=== PATIENT | female | born 1975 | race Caucasian/White ===

== ENCOUNTER 2021-08-22 12:11 | Emergency (ER) | payer OTHER ==
[~2021-08-22] VITALS: Ht 167.6 cm; Wt 94.3 kg
[~2021-08-22 12:11] MED LIST: CLEOCIN 150MG150 MG PO; IBUPROFEN800 MG PO; LIDOCAINE 2% TOP; LODINE CAP 300300 MG PO; PENVEE K 500 M500 MG PO; ZOFRAN4 MG PO
== END 2021-08-22 15:16 | disposition home or self-care (01) ==
LOC: ER1 12:11
DX: U07.1 COVID-19 (principal); Z23 Encounter for immunization; F17.200 Nicotine dependence, unspecified, uncomplicated; Z88.1 Allergy status to other antibiotic agents
CPT/HCPCS: 99283; M0243

== ENCOUNTER 2021-12-06 15:13 | Emergency (ER) | payer OTHER ==
[2021-12-06] MEDS ORDERED: ERYTHROMYCIN O3.5 GM OU (18:02)
[2021-12-06] MEDS ORDERED: BENZONATATE100 MG PO (18:02)
== END 2021-12-06 18:05 | disposition home or self-care (01) ==
LOC: ER1 15:13
DX: H10.9 Unspecified conjunctivitis (principal); J06.9 Acute upper respiratory infection, unspecified; J02.9 Acute pharyngitis, unspecified; R51.9 Headache, unspecified; F17.210 Nicotine dependence, cigarettes, uncomplicated; Z20.822 Contact with and (suspected) exposure to COVID-19
CPT/HCPCS: 0240U; 71045; 87081; 87880; 99284